=== PATIENT | female | born 2000 | race Caucasian/White ===

== ENCOUNTER 2023-09-22 12:06 | Emergency (ER) | payer BC, OTHER, SELFPAY ==
[2023-09-22 12:12] VITALS: BP 131/89
--- NOTE | 2023-09-22 12:31 | ED.GENMED ---
History of Present Illness
General
Chief Complaint: Head Injury
Time Seen by Provider: 09/22/23 12:30
Travel History
Have you had any contact with someone who has COVID-19?: No
Do you have any symptoms of coronavirus? Fever > 100 degrees, chills, cough, shortness of breath, sore throat, loss of taste or smell, muscle aches, or headache?: No
History of Present Illness
History of Present Illness:
HPI: Last night, the patient bent down in the shower and as she stood up, she struck her head on the ceramic soap mccarty in the shower. She had a rather significant headache initially and took some [id number] pain medication last night. She
says she has a history of migraine but does not feel like a migraine type of headache. Last night and today she had right ear pain described as sharp. She called her PMD who wanted her to come in here for further evaluation. She does not feel
that she is in a fog and reports no confusion.
EXAM:
GENERAL: Well appearing in no distress
HEAD: There is no palpable hematoma over the scalp
HEENT: Moist oral mucosa, the pupils are equally react briskly directly and consensually
NEUROLOGIC: Excellent strength all extremities, no coordination deficits
PSYCHIATRIC: Excellent mental status, normal insight and judgement
EXTREMITIES: Nontender, no edema, moves all extremities equally
SKIN: No rash, no lesions
ED COURSE:
12:30 PM: I initially evaluated patient
NUMBER AND COMPLEXITY OF PROBLEMS ADDRESSED AT THE ENCOUNTER
� Chronic conditions affecting care: History of migraine
� Acute Exacerbation and/or Progression of Chronic Illness: This is an acute problem
� Differential Diagnosis includes: Minor head injury, intracranial hemorrhage very unlikely given normal neurologic examination, concussion
AMOUNT AND/OR COMPLEXITY OF DATA TO BE REVIEWED AND ANALYZED
� I performed an independent evaluation of and my interpretation is:
EKG:
CT:
X-rays:
Laboratory Studies:
Other:
� Review of other/old records:
� Clinical information was obtained by an independent historian:
� Prescriptions/Medications Considered but not given:
� Further testing considered but not performed: Considered CT imaging of the brain and did discuss options of this with the patient. However given the normal neurologic examination and radiation risks, I do not feel that the
risks of radiation outweigh any very low benefits of obtaining CT. Patient agrees at this time but agrees to return if worse
RISK OF COMPLICATIONS AND/OR MORBIDITY OR MORTALITY OF PATIENT MANAGEMENT
� Social determinants of health affecting care: Lives at home
� Discussion with other providers:
� Escalation of care including admission/observation vs risk of discharge considered: Normal neurologic exam, the patient is to return if worse
Past History
Past History
ED Past Medical History: Other (Migraines)
ED Past Surgical History: None
Social History
Tobacco: Other (Vaping)
Phy Exam
Physical Exam
Physical Exam:
See HPI
Course
Vital Signs
Initial and Last Documented VS:
Initial Vital Signs
Temp Pulse Resp BP Pulse Ox
98.1 F 83 18 131/89 100
09/22/23 12:12 09/22/23 12:12 09/22/23 12:12 09/22/23 12:12 09/22/23 12:12
Last Documented Vital Signs
Temp Pulse Resp BP Pulse Ox
98.1 F 83 18 131/89 100
09/22/23 12:12 09/22/23 12:12 09/22/23 12:12 09/22/23 12:12 09/22/23 12:12
*Critical Care Note
Total Time (30-74mins, 75-104mins- exclusive of procedures): Not Applicable
ED Attending Note
-
Portions of this chart may have been created with voice recognition software.� Occasional wrong word or��sound alike� substitutions may have occurred due to the inherent limitations of voice recognition software.
Discharge Plan
Departure
Patient Disposition: Home (Routine Discharge)
Date of Disposition: 09/22/23
Time of Disposition: 12:36
Patient with high blood pressure during this ER visit?: Yes
Discharge Problem:
Head injury
Instructions: Head Injury in Adults (DC), BLOOD PRESSURE
Prescriptions:
No Action
ondansetron 4 mg Film
4 mg PO Q6HPRN PRN (Reason: nausea)
Ubrelvy 100 mg Tablet
100 mg PO DAILYPRN PRN (Reason: migraines)
Qulipta 60 mg Tablet
60 mg PO DAILY
acetaminophen [acetaminophen] 325 mg tablet
650 mg PO Q4HPRN PRN (Reason: mild pain) Qty: 1 0RF
amoxicillin-pot clavulanate [amoxicillin-pot clavulanate] 875-125 mg tablet
1 tab PO Q12 7 Days Qty: 14 0RF
Referrals:
Chris Graham DO [Family Provider] -
Activity Restrictions/Additional Instructions:
Based on the history and physical examination, there is no indication for CAT scan at this time of your brain. However if symptoms change or worsen please return here.
== END 2023-09-22 12:51 | disposition home or self-care (01) ==
LOC: EMR 12:06
PROVIDERS: EMERGENCY PHYSICIAN Emergency Medicine; FAMILY PHYSICIAN Internal Medicine
DX: H92.01 Otalgia, right ear (principal); S09.90XA Unspecified injury of head, initial encounter; W22.8XXA Striking against or struck by other objects, initial encounter; Y93.E1 Activity, personal bathing and showering; F17.290 Nicotine dependence, other tobacco product, uncomplicated
CPT/HCPCS: 99283